=== PATIENT | male | born 1980 | race Caucasian/White ===

== ENCOUNTER 2017-04-20 06:31 | Day surgery (SDC) | payer MEDICARE ==
[~2017-04-20] VITALS: Ht 172.7 cm; Wt 75.7 kg
[2017-04-20] VITALS (7 sets, daily range): BP systolic 127–139; BP diastolic 82–95; PULSE 11–79; RESP 12–18; O2SAT 97–100
[~2017-04-20 06:31] MED LIST: CeFAZolin Inj 2 GM in IV Premix 1 EACH IV ONE; HYDR-3740 PO; Lactated Ringer's 1,000 ML IV ONE; MELO-253 PO; METH25VI9 IM; NICO1PAT16 TRANSDERM; NICO2GUM3 PO; PRE20 PO; [UNRECOGNIZED DRUG - OTHER] SQ
[2017-04-20] MEDS ORDERED: Ondansetron 2 mg/mL 2 mL Inj ONE (06:32)
[2017-04-20] MEDS ORDERED: Dexamethasone 4 mg/mL Inj ONE (06:32)
[2017-04-20] MEDS ORDERED: fentaNYL-PF 50 mCg/mL 2 mL Inj ONE (06:32)
[2017-04-20] MEDS ORDERED: MetoCLOpramide 5 mg/mL 2 mL Inj ONE (06:32)
[2017-04-20] MEDS ORDERED: Propofol 10,000 mCg/mL 20 mL Inj ONE (06:32)
[2017-04-20] MEDS ORDERED: Ropivacaine-PF 0.5% 30 mL Inj INFILTRATE ONE (08:25)
[2017-04-20] MEDS ORDERED: Lactated Ringer's 1,000 ML IV SCH (08:47)
[2017-04-20] MEDS ORDERED: Lactated Ringer's 500 ML IV PRN (08:47)
[2017-04-20] MEDS ORDERED: Labetalol 5 mg/mL 4 mL Inj IV PRN (08:50)
[2017-04-20] MEDS ORDERED: Phenylephrine 10,000 mCg/mL Inj IVPUSH PRN (08:50)
[2017-04-20] MEDS ORDERED: Ondansetron 2 mg/mL 2 mL Inj IVPUSH PRN (08:50)
[2017-04-20] MEDS ORDERED: fentaNYL-PF 50 mCg/mL 2 mL Inj IVPUSH PRN (08:50)
[2017-04-20] MEDS ORDERED: MetoCLOpramide 5 mg/mL 2 mL Inj IVPUSH PRN (08:50)
[2017-04-20] MEDS ORDERED: Atropine 0.4 mg/mL Inj IVPUSH PRN (08:50)
[2017-04-20] MEDS ORDERED: HYDROmorphone 1 mg/mL Inj IVPUSH PRN (08:50)
[2017-04-20] MEDS ORDERED: EPHEDrine Sulfate 50 mg/mL Inj IVPUSH PRN (08:50)
[2017-04-20] MEDS ORDERED: Lidocaine 2%-Epi 1:100,000 20 mL Inj INFILTRATE ONE (08:52)
--- NOTE | 2017-04-20 08:52 | PCM.HPANE ---
Patient Data Surgeon Admitting Provider: Attending Provider:Ian Wilson DO Primary Care Physician:Laly Mayen Other Provider:Carlo Fields Anesthesia Reason for Visit Left Knee Synovitis Ht/WT & BMI Height (Feet): 5 Height (Inches): 8.00 Weight (Kilograms): 75.7 Body Mass Index 25.00 Allergies Coded Allergies: No Known Allergies (Unverified , 04/14/17) Past Anesthesia History Anesthesia History: Denies:: Abnormal Airway, Anesthesia Reactions, Difficult Intubation, Fam Anesthesia Reaction, Fam Malignant Hypertherm, Malignant Hyperthermia Diabetes History Hx Diabetes?: No MRSA MRSA: No Medications Home Meds Incl Beta Maxine: No Reported Medications Prednisone (PredniSONE)20 Mg [id number] Mg PO DAILY Ref 0 20MG DAILY FOR 1 WEEK; THEN, 10 MG DAILY FOR 1 WEEK, THEN 5MG DAILY 04/14/17 Nicotine 21 mg/24 hr Patch 1 Each Patch.dysq1 Patch TRANSDERM DAILY Ref 0 04/14/17 Nicotine Polacrilex (Nicotine Gum)2 Mg Gum2 Mg PO Q2H PRN For Tobacco Withdrawal Ref 0 04/14/17 Methotrexate Sodium (Methotrexate)50 Mg/2 Ml Vial20 Mg IM WEEKLY 04/14/17 Meloxicam 15 Mg [id number] Mg PO DAILY 30 Days Ref 0 04/14/17 Hydrocodone-Acetaminophen 10-325 mg 1 Each Tablet1 Tablet PO BID PRN For Pain Ref 0 04/14/17 [Cocentyx] No Conflict [id number] Mg SQ [id number] CURRENTLY ON HOLD FOR SURGERY 04/14/17 History History of ENT Problems?: Yes HEENT History: Denies:: Abnormal Airway Cataracts Difficult Intubation Dysphagia Glaucoma Hearing Problem Sinus Problem TMJ Denture Type: None Teeth Condition: Missing Teeth Other HEENT Pertinent History: S/P TONSILLECTOMY Hx of Heart Problems?: No Cardiovascular History: Denies:: AICD Abdominal Aortic Aneurism Atrial Fibrillation Cardiac Surgery Chest Pain Congestive Heart Failure Coronary Artery Disease Edema Heart Murmur Hypertension (HYPERLIPIDEMIA) Irregular Heartbeat Pacemaker Peripheral Vascular Rheumatic Fever Thrombophlebitis Valvular Heart Disease Hx of Respiratory Problem?: No Respiratory History: Denies:: Asthma COPD Chest Surgery Cough Dyspnea Emphysema Hemoptysis Oxygen Administration Pneumonia Pulmonary Embolism Tuberculosis Use of C-PAP Machine Use of Inhalers / NEBS Hx Neurologic Problems?: No Neurological History: Denies:: Alzheimer's Disease CVA Dementia Dizziness Headaches Multiple Sclerosis Parkinson's Disease Peripheral Neuropathy Seizures TIA Hx of GI Problems?: No Gastrointestinal History: Denies:: Cirrhosis Diverticulitis Gall Bladder Disease Gastroesphageal Reflux Gastrointestinal Bleeding Heartburn Hepatitis Hiatal Hernia Liver Disease Rectal Bleeding Hx of Problems?: No Genitourinary History: Denies:: HX of Hemodialysis Kidney Stones Urinary Tract Infection HX of Peritoneal Dialysis: No Male Hx: Denies:: Prostate Problems Scrotal Mass Testicular Surgery Skin History: Positive for:: History Skin Disorders? (PSORIASIS) Denies:: Pressure Ulcers Hx Musculoskeletal Problems?: Yes Musculoskeletal History: Positive for:: Musculoskeletal Trauma (LT KNEE SYNOVITIS (ONGOING EFFUSIONS)=CURRENT PROBLEM) Osteoarthritis (KNEES; C/OF BILAT HIP PAIN) Denies:: Back Injury Degenerative Joint Fibromyalgia Joint Replacement Myasthenia Gravis Rheumatoid Arthritis Systemic Lupus Other History/Comment ankylosis spondylitis Hx of Psycho/Social Problems?: No Psycho Social History: Denies:: Anxiety Bipolar Disorder Hx Depression Suicide Attempt Hx Surgeries?: Yes (TONSILLECTOMY) Hx Any Other Health Problems?: Yes Other History: Denies:: Cancer Endocrine Disease (C/OF NIGHT SWEATS) Hospitalization Thyroid Disease History Blood Transfusions: Positive for:: Accept Blood Products? Denies:: Blood Transfuse Reaction Blood Transfusions Hx Diabetes: No Hx Substance Use: Yes (HX OF ABUSE CURRENT MEDICAL MARIJUANA)Have You Smoked inLast 12 mo: Yes (TRYING TO QUIT)Approx How Many Cigarettes/day: 1 PPD X 15YRS Stop/Bang S-Snoring: Do You Snore Loudly: No T-Tired: feel tired, fatigued: No O-Obsered: Observed not breath: No P-Blood Pressure: treated: No B- Body Mass Index > 35 kg/m2: No A- Age over 50: No N- Neck Large Circumference: No G- Gender Male: Yes WARD Total Score: 1 Risk Assessment Category Category 1A: Patient has history of documented sleep apnea, and HAS NOT received any narcotic, sedative or anesthesia administration during this stay. Category 1B: Patient has history of documented sleep apnea, and HAS received any narcotic , sedative or anesthesia administration during this stay Category 2: Patient has SUSPECTED Obstructive Sleep Apnea, and HAS received any narcotic , sedative or anesthesia administration during this stay. Category 3: Patient has SUSPECTED Obstructive Sleep Apnea and HAS NOT received narcotic, sedative or anesthesia administration during this stay. Category 4: Outpatient in Procedural Areas with known sleep apnea or who screen positive for High Risk via the STOP/BANG questionnaire. Exam Exam Vital Signs Vital Signs Date Time Temp Pulse Resp B/P Pulse Ox O2 Delivery O2 Flow Rate FiO2 04/20/17 07:19 36.2 61 18 127/85 100 Room Air General Appearance: Alert, Oriented X3, Cooperative, No Acute Distress HEENT/AIRWAY: MP 2, Neck Movement (FROM), Mouth Opening (3 FBMO) Lungs: Clear to Auscultation, Normal Air Movement Heart: Exam Unremarkable, Regular Rate/Rhythm, No Murmurs/Rubs/Gallops Meds/Labs/Diagnostics Admission Meds Current Medications Lactated Ringer's (Lr) 1,000 ml @ 120 mls/hr Q8H20M ONCE IV Last administered on 04/20/17t 05:13; Start 04/20/17 at 05:00; Stop 04/20/17 at 13:19 Plan Impression Patient chart reviewed, patient interviewed and anesthestic plan with risks, benefits, and alternatives discussed, and informed consent obtained. NPO per Anesth. Guidelines: Yes ASA Physical Status: ASA2 Mod Systemic Disease Anesthetic Plan: GA Bene/Risks/Altern/Consents: Yes HP Complete Prior to Induction: Yes Ian Gutierrez MD April 20, 2017 07:42
[2017-04-20] MEDS: HYDROcodone-APAP 10-325 mg PO PRN ×2 (10:00→10:02)
--- NOTE | 2017-04-20 10:16 | OP ---
[address] [address] OPERATIVE REPORT PATIENT: LANE ANDERSON : 1980 MR#: [id number] ADMIT: 04/20/2017 JOB ID: [id number] DATE OF SURGERY: 04/20/2017 PREOPERATIVE DIAGNOSIS(ES): Left knee synovitis with torn medial meniscus. POSTOPERATIVE DIAGNOSIS(ES): Left knee synovitis with torn medial meniscus. PROCEDURE: Left knee extensive synovectomy with partial medial meniscectomy. SURGEON: Ian Wilson DO ANESTHESIA: General. INDICATIONS: The patient is a 36-year-old male with ankylosing spondylitis who has had recurrent left knee effusions and pain. He has been treated with multiple aspirations and cortisone injections and the synovitis has been persistent despite medical management and he wished to proceed with a knee arthroscopy with synovectomy. We discussed the risks, benefits, and possible complications of surgery. All questions were answered. He wished to proceed. PROCEDURE IN DETAIL: Patient was brought to the operating room. He was given a preoperative antibiotic and LMA general anesthetic. The left lower extremity was sterilely prepped and draped. An incision was made over the anterolateral knee at the level of joint line and the blunt trocar was introduced into the knee. Inspection was undertaken. He was found to have extensive synovitis throughout the knee in all three compartments. The cartilage itself was in good condition. He had a small tear in the posterior horn medial meniscus. Medial portal was established under needle localization and the meniscal tear was resected back to a stable base with a combination of biters and britt. I then did an extensive synovectomy beginning in the medial compartment, re-establishing the medial gutter and then moving it to the notch and re-establishing the notch and removing the synovitis in the anterior knee then moving laterally. The lateral compartment, articular cartilage and meniscus were in excellent condition; however, he did not have a lateral gutter due to the extensive synovitis and this was reestablished with the shaver, as well as a VaporTrode. Also the suprapatellar recess had extensive synovitis and this was resected with a shaver, as well as VaporTrode. The scope was then removed. The portals were closed with interrupted nylon suture. Naropin was added as an adjunct local anesthetic. Sterile dressings were applied. Patient tolerated the procedure well. Blood loss was minimal. Postop per protocol. Have the patient weightbear to tolerance. Use crutches or cane as needed. Ice and elevate and follow up in two weeks or sooner if needed. He was given a prescription for [place] 10/325 for pain.
--- NOTE | 2017-04-20 18:55 | PCM.ANEP1 ---
Post Anesthesia PACU Phase 1 Assessment Anesthetic Administered: GA Level of Alertness: Awake, talking COLLINS's with Equal Strength: Yes Pain: No Nausea or Vomiting: No CV Function & Hydration Stable: No Airway Device: Oxygen Delivery: Room Air Lungs: Clear to Auscultation, Normal Air Movement Dermatome Level: Full Sensation PACU Phase 2 Assessment Complications: No Follow up Care: N/A Patient Instructions Provided: N/A Ian Gutierrez MD April 20, 2017 18:55
== END 2017-04-20 23:59 | disposition home or self-care (01) ==
LOC: SAS 06:31
PROVIDERS: ATTEND Orthopaedic Surgery
DX: M23.222 Derangement of posterior horn of medial meniscus due to old tear or injury, left knee (principal); M65.9 Synovitis and tenosynovitis, unspecified; M17.0 Bilateral primary osteoarthritis of knee; E78.5 Hyperlipidemia, unspecified; R20.8 Other disturbances of skin sensation; M45.9 Ankylosing spondylitis of unspecified sites in spine; F12.90 Cannabis use, unspecified, uncomplicated; F17.210 Nicotine dependence, cigarettes, uncomplicated
CPT/HCPCS: 29881; J0690; J1100; J1885; J2250; J2405; J2765; J2795; J3010; J7120